=== PATIENT | female | born 1955 | race Caucasian/White ===

== ENCOUNTER 2017-06-15 15:47 | Emergency (ER) | payer OTHER ==
[~2017-06-15 15:47] MED LIST: GLUC10TA3 PO; GLUCTAB PO; LANTUSP SQ; LISI10TA PO; NOVOLOGP2 SQ; SYNT300T PO; VERA120T3 OR
[2017-06-15 15:55] VITALS: BP 130/86; PULSE 113; RESP 18; TEMP 98.5; O2SAT 98
[2017-06-15 16:45] LABS: AUTOMATED NEUTROPHIL # 4.4 TH/MM3 (1.8-7.7); BASOPHIL # 0.1 TH/MM3 (0-0.2); EOSINOPHIL # 0.1 TH/MM3 (0-0.4); EOSINOPHIL % 2.2 % (0.0-4.0); HEMATOCRIT 38.7 % (35.0-46.0); HEMOGLOBIN 13.2 GM/DL (11.6-15.3); LYMPH % 17.7 % (9.0-44.0); LYMPHOCYTE # 1.1 TH/MM3 (1.0-4.8); MEAN CELL VOLUME 85.3 FL (80.0-100.0); MEAN CORPUSCULAR HEMOGLOBIN 29.1 PG (27.0-34.0); MEAN CORPUSCULAR HGB CONC 34.1 % (32.0-36.0); MEAN PLATELET VOLUME 7.3 FL (7.0-11.0); MONO % 6.7 % (0.0-8.0); MONOCYTE # 0.4 TH/MM3 (0-0.9); NEUT % 72.4 % (16.0-70.0); PLATELET COUNT 221 TH/MM3 (150-450); RED BLOOD COUNT 4.54 MIL/MM3 (4.00-5.30); RED CELL DISTRIBUTION WIDTH 16.4 % (11.6-17.2)
[2017-06-15 16:49] LABS: BACTERIA, URINE OCC /hpf; BILIRUBIN, URINE NEG (NEG); BLOOD, URINE NEG (NEG); GLUCOSE,URINE 1000 mg/dL (NEG); KETONE, URINE TRACE mg/dL (NEG); MUCUS URINE FEW /lpf (OCC); NITRITE,URINE NEG (NEG); SQUAMOUS EPITHELIAL CELL URINE 1 /hpf (0-5); URINE COLOR YELLOW (YELLW/STRAW); URINE LEUKOCYTE ESTERASE TRACE (NEG)
[2017-06-15 16:57] LABS: BICARBONATE 31.6 MEQ/L (21.0-32.0); CALCIUM 9.7 MG/DL (8.5-10.1); CREATININE 0.76 MG/DL (0.50-1.00)
[2017-06-15] MEDS ORDERED: MORPHINE SULFATE 2 MG/ML INJ IV PUSH ONE (17:00)
--- NOTE | 2017-06-15 17:04 | PD ---
HPI Chief Complaint: Flank/Kidney Pain Time Seen by Provider: 16:53 Travel History International Travel<30 days: No Contact w/Intl Traveler<30days: No Traveled to known affect area: No History of Present Illness HPI 62-year-old female here for evaluation of left flank pain and left leg edema. The patient reports she was diagnosed with the EBV 2 weeks ago and was started on a month course of acyclovir by her primary care physician as well as a prednisone taper which has been finished. She reports that her initial symptom was left flank pain. This resolved with acyclovir, however returned last night. Pain is sharp/stabbing, severe, radiates to her left upper abdomen. Pain is worse with movements and palpation. She denies urinary symptoms such as hematuria or dysuria. Patient also reports left leg edema times one day. She was diagnosed with a DVT in her 20s when she was on control. No chest pain or dyspnea. PFSH Past Medical History Autoimmune Disease: Yes (LITCHEN PLATINUS) Heart Rhythm Problems: Yes Cancer: No Cardiac Catheterization: No Cardiovascular Problems: Yes (HTN) High Cholesterol: No Congestive Heart Failure: No Diabetes: Yes Diminished Hearing: No Endocrine: Yes (HYPOTHYRIODISM) Gastrointestinal Disorders: No Genitourinary: No Hepatitis: No Hiatal Hernia: No Hypertension: Yes Immune Disorder: Yes (LETCHONPLATONIS) Musculoskeletal: No Neurologic: No Psychiatric: No Reproductive: No Respiratory: Yes (SLEEP APNEA) Thyroid Disease: Yes (HYPOTHYROIDISM) Menopausal: Yes Dilation and Curettage (D&C): Yes Past Surgical History AICD: No Section: Yes Coronary Artery Bypass Graft: No Gynecologic Surgery: Yes (D&C, ABLATION) Joint Replacement: No Pacemaker: No Other Surgery: Yes Social History Alcohol Use: No Tobacco Use: No Substance Use: No Allergies-Medications (Allergen,Severity, Reaction): Coded Allergies: No Known Allergies (Verified Allergy, Unknown, 06/15/17) Reported Meds & Prescriptions Reported Meds & Active Scripts Active Hydrocodone-Acetaminophen 5-300 Mg Tab 1 Tab PO Q6H PRN Xarelto (Rivaroxaban) 20 Mg Tab 20 Mg PO DAILY 30 Days Xarelto (Rivaroxaban) 15 Mg Tab 15 Mg PO DAILY 21 Days Reported Metformin (Metformin HCl) 1,000 Mg Tab 1,000 Mg PO BID Glipizide 10 Mg Tab 20 Mg PO BID Take 30 minutes before a meal Lipitor (Atorvastatin Calcium) 10 Mg Tab 10 Mg PO HS Lantus Inj (Insulin Glargine) 1,000 Unit/10 Ml Vial 25 Units SQ DAILY IN THE PM Lantus Inj (Insulin Glargine) 1,000 Unit/10 Ml Vial 35 Units SQ DAILY IN THE AM Lisinopril-Hctz 20-25 Mg Tab 1 Tab PO BID Levothyroxine (Levothyroxine Sodium) 100 Mcg Tab 100 Mcg PO DAILY Tizanidine (Tizanidine HCl) 4 Mg Cap 4 Mg PO BID Review of Systems Except as stated in HPI: all other systems reviewed are Neg Physical Exam Narrative GENERAL: Well-developed, well-nourished, comfortable, no apparent distress. SKIN: Focused skin assessment warm/dry. No rash. HEAD: Atraumatic. Normocephalic. EYES: Pupils equal and round. No scleral icterus. No injection or drainage. ENT: Mucous membranes pink and moist. CARDIOVASCULAR: Regular rate and rhythm. Bilateral dorsalis pedis pulses are brisk and equal. RESPIRATORY: No accessory muscle use. Clear to auscultation. Breath sounds equal bilaterally. GASTROINTESTINAL: Abdomen soft, non-tender, nondistended. MUSCULOSKELETAL: No obvious deformities. No clubbing. No cyanosis. No edema. Moderate left flank and CVA tenderness. No right CVA tenderness. No midline vertebral step-off or tenderness. Moderate left lower extremity edema when compared to the right with left calf tenderness. All compartments in left lower extremity are supple. NEUROLOGICAL: Awake and alert. No obvious cranial nerve deficits. Motor grossly within normal limits. Normal speech. PSYCHIATRIC: Appropriate mood and affect; insight and judgment normal. Data Data Last Documented VS Vital Signs Date Time Temp Pulse Resp B/P (MAP) Pulse Ox O2 Delivery O2 Flow Rate FiO2 06/15/17 17:16 102 18 06/15/17 15:55 98.5 130/86 (101) 98 Orders Orders Complete Blood Count With Diff (06/15/17 15:57) Basic Metabolic Panel (Bmp) (06/15/17 15:57) Urinalysis - C+S If Indicated (06/15/17 15:57) Hepatic Functional Panel (06/15/17 16:59) ^ Insert Iv (06/15/17 16:59) Ct Abd/Pel W Iv Contrast(Rout) (06/15/17 ) Morphine Inj (Morphine Inj) (06/15/17 17:00) Us Leg Venous Doppler (06/15/17 ) Iohexol 350 Inj (Omnipaque 350 Inj) (06/15/17 19:13) Rivaroxaban (Xarelto) (06/15/17 20:30) Ed Discharge Order (06/15/17 20:26) Labs Laboratory Tests Test 06/15/17 16:30 White Blood Count 6.0 TH/MM3 Red Blood Count 4.54 MIL/MM3 Hemoglobin 13.2 GM/DL Hematocrit 38.7 % Mean Corpuscular Volume 85.3 FL Mean Corpuscular Hemoglobin 29.1 PG Mean Corpuscular Hemoglobin Concent 34.1 % Red Cell Distribution Width 16.4 % Platelet Count 221 TH/MM3 Mean Platelet Volume 7.3 FL Neutrophils (%) (Auto) 72.4 % Lymphocytes (%) (Auto) 17.7 % Monocytes (%) (Auto) 6.7 % Eosinophils (%) (Auto) 2.2 % Basophils (%) (Auto) 1.0 % Neutrophils # (Auto) 4.4 TH/MM3 Lymphocytes # (Auto) 1.1 TH/MM3 Monocytes # (Auto) 0.4 TH/MM3 Eosinophils # (Auto) 0.1 TH/MM3 Basophils # (Auto) 0.1 TH/MM3 CBC Comment DIFF FINAL Differential Comment Urine Color YELLOW Urine Turbidity CLEAR Urine pH 5.0 Urine Specific [place] 1.021 Urine Protein NEG mg/dL Urine Glucose (UA) 1000 mg/dL Urine Ketones TRACE mg/dL Urine Occult Blood NEG Urine Nitrite NEG Urine Bilirubin NEG Urine Urobilinogen LESS THAN 2.0 MG/DL Urine Leukocyte Esterase TRACE Urine RBC LESS THAN 1 /hpf Urine WBC 1 /hpf Urine Squamous Epithelial Cells 1 /hpf Urine Bacteria OCC /hpf Urine Mucus FEW /lpf Microscopic Urinalysis Comment CULT NOT INDICATED Blood Urea Nitrogen 25 MG/DL Creatinine 0.76 MG/DL Random Glucose 246 MG/DL Calcium Level 9.7 MG/DL Sodium Level 135 MEQ/L Potassium Level 3.3 MEQ/L Chloride Level 96 MEQ/L Carbon Dioxide Level 31.6 MEQ/L Anion Gap 7 MEQ/L Estimat Glomerular Filtration Rate 78 ML/MIN Total Bilirubin 0.2 MG/DL Direct Bilirubin 0.1 MG/DL Indirect Bilirubin 0.1 MG/DL Aspartate Amino Transf (AST/SGOT) 17 U/L Alanine Aminotransferase (ALT/SGPT) 33 U/L Alkaline Phosphatase 76 U/L Total Protein 7.3 GM/DL Albumin 3.6 GM/DL [facility] Medical Decision Making Medical Screen Exam Complete: Yes Emergency Medical Condition: Yes Differential Diagnosis Splenomegaly, pyelonephritis, nephrolithiasis, ureterolithiasis, colitis, diverticulitis, DVT Narrative Course Vital signs reviewed. CBC is unremarkable. CMP is remarkable for potassium 3.3, random glucose 246, otherwise unremarkable. UA shows 1000 glucose, trace ketones, trace leukocyte esterase, negative nitrites, not suggestive of UTI. Left lower extremity venous duplex: CONCLUSION: Left calf DVT CT abdomen pelvis: CONCLUSION: 1. No acute findings. Atherosclerotic aorta without aneurysm. Mild fatty liver. Patient was made aware of all findings. She is resting comfortably. There are no signs of phlegmasia cerulea dolens. Bilateral dorsalis pedis pulses are brisk and equal. All compartments in bilateral lower extremities are supple. Plan is to start her on Xarelto. The risks, benefits, and alternatives were discussed with the patient regarding this medication. She has an appointment with her primary care physician Dr. Mazariegos tomorrow. She is stable for discharge home with outpatient follow-up. She was advised on when to return to the emergency department. She verbalizes understanding and agreement with plan. Diagnosis Primary Impression: Left leg DVT Qualified Codes: I82.442 - Acute embolism and thrombosis of left tibial vein Additional Impression: Left flank pain Referrals: Ravi Mazariegos MD 1 day Additional Instructions: Follow-up with your primary care physician tomorrow as scheduled. Return to the emergency department for worsening symptoms or any other concerns. Scripts Rivaroxaban (Xarelto) 15 Mg Tab 15 MG PO Q12HR for Blood Clot Prevention for 21 Days, TAB 0 Refills Prov: Sandro De Leon MD 06/15/17 Hydrocodone-Acetaminophen (Hydrocodone-Acetaminophen) 5-300 Mg Tab 1 TAB PO Q6H Y for PAIN, #12 TAB 0 Refills Prov: Sandro De Leon MD 06/15/17 Rivaroxaban (Xarelto) 20 Mg Tab 20 MG PO DAILY for Blood Clot Prevention for 30 Days, #30 TAB 0 Refills Prov: Sandro De Leon MD 06/15/17 Rivaroxaban (Xarelto) 15 Mg Tab 15 MG PO DAILY for Blood Clot Prevention for 21 Days, #21 TAB 0 Refills Prov: Sandro De Leon MD 06/15/17 Disposition: 01 DISCHARGE HOME Condition: Stable Sandro De Leon MD Jun 15, 2017 17:04
[2017-06-15 17:17] LABS: ALBUMIN 3.6 GM/DL (3.4-5.0); DIRECT BILIRUBIN ADULT 0.1 MG/DL (0.0-0.2)
[2017-06-15 17:18] LABS: INDIRECT BILIRUBIN 0.1 MG/DL (0.0-0.8); TOTAL BILIRUBIN ADULT 0.2 MG/DL (0.2-1.0); TOTAL PROTEIN 7.3 GM/DL (6.4-8.2)
[2017-06-15] MEDS ORDERED: GLIP10TA6 PO (17:33)
[2017-06-15] MEDS ORDERED: METF1000 PO (17:33)
[2017-06-15] MEDS ORDERED: LEVO100T5 PO (17:33)
[2017-06-15] MEDS ORDERED: TIZA4CAP3 PO (17:33)
[2017-06-15] MEDS ORDERED: LIPI10TA PO (17:33)
[2017-06-15] MEDS ORDERED: LANTUS2P SQ ×2 (17:33)
[2017-06-15] MEDS ORDERED: LISI20TA3 PO (17:33)
--- NOTE | 2017-06-15 17:52 | RADRPT ---
EXAM DATE/TIME: 06/15/2017 17:30 [facility] COMPARISON: No previous studies available for comparison. INDICATIONS : Left leg swelling. MEDICAL HISTORY : Hypothyroidism. Hypertension. Syncope. Sleep apnea. Diabetes. Claustrophobia. SURGICAL HISTORY : section. Uterine ablation. Dilation and curettage. ENCOUNTER: Initial ACUITY: 1 week PAIN SCORE: 6/10 LOCATION: Left leg. TECHNIQUE: Venous ultrasound of the leg was performed from the inguinal ligament to the proximal calf. Real-karen e, color Doppler and spectral tracing, compression and augmentation techniques were used. FINDINGS: There is occlusive thrombus present in the left calf within the peroneal and posterior tibial veins. The more proximal deep venous structures are patent. Specifically, the common femoral vein, superfici al femoral vein and popliteal vein are patent and normal in appearance. Visualized iliac vein is lin nt. CONCLUSION: Left calf DVT Pro Feng MD on June 15, 2017 at 17:49 Board Certified Radiologist. This report was verified electronically.
[2017-06-15] MEDS ORDERED: IOHEXOL 350 MG/ML 10 ML VIAL (for RAD DIAG) IVCONTRAST ONE (19:13)
--- NOTE | 2017-06-15 19:42 | RADRPT ---
EXAM DATE/TIME: 06/15/2017 19:00 [facility] COMPARISON: No previous studies available for comparison. INDICATIONS : Abdomen pain. IV CONTRAST: 100 cc Omnipaque 350 (iohexol) IV ORAL CONTRAST: No oral contrast ingested. RADIATION DOSE: 19.49 CTDIvol (mGy) MEDICAL HISTORY : None SURGICAL HISTORY : None. ENCOUNTER: Initial ACUITY: 1 day PAIN SCALE: 5/10 LOCATION: Left flank TECHNIQUE: Volumetric scanning of the abdomen and pelvis was performed. Using automated exposure control and ad justment of the mA and/or kV according to patient size, radiation dose was kept as low as reasonably achievable to obtain optimal diagnostic quality images. DICOM format image data is available electro nically for review and comparison. FINDINGS: LOWER LUNGS: The visualized lower lungs are clear. LIVER: Homogeneous density without lesion. There is no dilation of the biliary tree. No calcified gallston es. SPLEEN: Normal size without lesion. PANCREAS: Within normal limits. KIDNEYS: Normal in size and shape. There is no mass, stone or hydronephrosis. ADRENAL GLANDS: Within normal limits. VASCULAR: There is no aortic aneurysm. BOWEL/MESENTERY: The stomach, small bowel, and colon demonstrate no acute abnormality. There is no free intraperitone al air or fluid. ABDOMINAL WALL: Within normal limits. RETROPERITONEUM: There is no lymphadenopathy. BLADDER: No wall thickening or mass. REPRODUCTIVE: Within normal limits. INGUINAL: There is no lymphadenopathy or hernia. MUSCULOSKELETAL: Within normal limits for patient age. CONCLUSION: 1. No acute findings. Atherosclerotic aorta without aneurysm. Mild fatty liver. Jomar Carlton MD on June 15, 2017 at 19:39 Board Certified Radiologist. This report was verified electronically.
[2017-06-15] MEDS ORDERED: XARE20TA PO (20:25)
[2017-06-15] MEDS ORDERED: HYDR-4107 PO (20:25)
[2017-06-15] MEDS ORDERED: XARE15TA PO ×2 (20:25→20:28)
[2017-06-15] MEDS ORDERED: RIVAROXABAN 15 MG TAB PO ONE (20:30)
== END 2017-06-15 21:17 | disposition home or self-care (01) ==
LOC: NEPD 15:47
DX: I82.442 Acute embolism and thrombosis of left tibial vein (principal); R10.9 Unspecified abdominal pain; E03.9 Hypothyroidism, unspecified; E11.9 Type 2 diabetes mellitus without complications; I10 Essential (primary) hypertension; Z79.01 Long term (current) use of anticoagulants; Z79.4 Long term (current) use of insulin
CPT/HCPCS: 74177; 80048; 80076; 81001; 85025; 93971; 96374; 99285; J2270; Q9967

== ENCOUNTER 2017-06-19 07:32 | Emergency (ER) | payer OTHER ==
[~2017-06-19] VITALS: Ht 167.6 cm; Wt 100.0 kg
[~2017-06-19 07:32] MED LIST changes: +GLIP10TA6 PO; -GLUC10TA3 PO; -GLUCTAB PO; +HYDR-4107 PO; +LANTUS2P SQ; -LANTUSP SQ; +LEVO100T5 PO; +LIPI10TA PO; -LISI10TA PO; +LISI20TA3 PO; +METF1000 PO; -NOVOLOGP2 SQ; -SYNT300T PO; +TIZA4CAP3 PO; -VERA120T3 OR; +XARE15TA PO; +XARE20TA PO
[2017-06-19] MEDS ORDERED: GADODIAMIDE PF 287 MG/ML 20 ML VIAL (for RAD MRI) IVCONTRAST ONE (07:33)
[2017-06-19 07:37] VITALS: BP 139/83; PULSE 85; RESP 20; TEMP 98.3; O2SAT 95
--- NOTE | 2017-06-19 07:48 | PD ---
HPI Chief Complaint: Numbness/Tingling Time Seen by Provider: 07:47 Travel History International Travel<30 days: No Contact w/Intl Traveler<30days: No Traveled to known affect area: No History of Present Illness HPI 62-year-old female came to the emergency room with history of left fingers tingling and numbness. She is also complaining of occasional left arm pain that comes and goes. Patient says that she was in the emergency room last Thursday when she was diagnosed with DVT and was discharged home on Xarelto. Patient has been taking the Xarelto like she supposed to. She was asked to return back to the ER if anything feels different. Patient says since this morning the numbness sensation did feel different and hence she came to the emergency room. She does have a primary care physician. Patient denies of any chest pain or shortness of breath. The pain is non-radiating and comes and goes. Patient has never had these kind of symptoms in the past. She is a diabetic and says that her sugar has been well controlled lately. No history of strokes in the past. Her younger sister last year had stroke. [facility] Past Medical History Narrative Medical List of her past medical, surgical, social and family history is reviewed from the nursing note. Hx Anticoagulant Therapy: Yes (XARELTO) Autoimmune Disease: Yes (LITCHEN PLATINUS) Heart Rhythm Problems: Yes Cancer: No Cardiac Catheterization: No Cardiovascular Problems: Yes (HTN) High Cholesterol: No Congestive Heart Failure: No Diabetes: Yes Diminished Hearing: No Endocrine: Yes (HYPOTHYRIODISM) Gastrointestinal Disorders: No Genitourinary: No Hepatitis: No Hiatal Hernia: No Hypertension: Yes Immune Disorder: Yes (LETCHONPLATONIS) Musculoskeletal: No Neurologic: No Psychiatric: No Reproductive: No Respiratory: Yes (SLEEP APNEA) Sleep Apnea: Yes Thyroid Disease: Yes (HYPOTHYROIDISM) Menopausal: Yes Dilation and Curettage (D&C): Yes Past Surgical History AICD: No Section: Yes Coronary Artery Bypass Graft: No Gynecologic Surgery: Yes (D&C, ABLATION) Joint Replacement: No Pacemaker: No Other Surgery: Yes Social History Alcohol Use: Yes (RARE ) Tobacco Use: No Substance Use: No Allergies-Medications (Allergen,Severity, Reaction): Coded Allergies: No Known Allergies (Verified Allergy, Unknown, 06/19/17) Comments No known drug allergies. Reported Meds & Prescriptions Reported Meds & Active Scripts Active Xarelto (Rivaroxaban) 15 Mg Tab 15 Mg PO Q12HR 21 Days Hydrocodone-Acetaminophen 5-300 Mg Tab 1 Tab PO Q6H PRN Reported Metformin (Metformin HCl) 1,000 Mg Tab 1,000 Mg PO BID Glipizide 10 Mg Tab 20 Mg PO BID Take 30 minutes before a meal Lipitor (Atorvastatin Calcium) 10 Mg Tab 10 Mg PO HS Lantus Inj (Insulin Glargine) 1,000 Unit/10 Ml Vial 25 Units SQ DAILY IN THE PM Lantus Inj (Insulin Glargine) 1,000 Unit/10 Ml Vial 35 Units SQ DAILY IN THE AM Lisinopril-Hctz 20-25 Mg Tab 1 Tab PO BID Levothyroxine (Levothyroxine Sodium) 100 Mcg Tab 100 Mcg PO DAILY Tizanidine (Tizanidine HCl) 4 Mg Cap 4 Mg PO BID Narrative Medication The services home medications reviewed from the nursing note. Review of Systems Except as stated in HPI: all other systems reviewed are Neg Neurologic: Positive: Paresthesia Physical Exam Narrative GENERAL: Awake, alert, anxious, no obvious distress SKIN: Focused skin assessment warm/dry. HEAD: Atraumatic. Normocephalic. EYES: Pupils equal and round. No scleral icterus. No injection or drainage. ENT: No nasal bleeding or discharge. Mucous membranes pink and moist. NECK: Trachea midline. No JVD. CARDIOVASCULAR: Regular rate and rhythm. No murmur appreciated. RESPIRATORY: No accessory muscle use. Clear to auscultation. Breath sounds equal bilaterally. GASTROINTESTINAL: Abdomen soft, non-tender, nondistended. Hepatic and splenic margins not palpable. MUSCULOSKELETAL: No obvious deformities. No clubbing. No cyanosis. No edema. NEUROLOGICAL: Awake and alert. No obvious cranial nerve deficits. Motor grossly within normal limits. Normal speech. PSYCHIATRIC: Appropriate mood and affect; insight and judgment normal. Data Data Last Documented VS Vital Signs Date Time Temp Pulse Resp B/P (MAP) Pulse Ox O2 Delivery O2 Flow Rate FiO2 06/19/17 11:20 97.9 76 16 132/77 (95) 99 06/19/17 10:42 Room Air Orders Orders Electrocardiogram (06/19/17 07:51) Prothrombin Time / Inr (Pt) (06/19/17 07:51) Complete Blood Count With Diff (3/2/18 07:51) Basic Metabolic Panel (Bmp) (06/19/17 07:51) Troponin I (06/19/17 07:51) Ct Brain W/O Iv Contrast(Rout) (06/19/17 07:51) Chest, Single Ap (06/19/17 07:51) Ecg Monitoring (06/19/17 07:51) Iv Access Insert/Monitor (06/19/17 07:51) Oximetry (06/19/17 07:51) Sodium Chloride 0.9% Flush (Ns Flush) (06/19/17 08:00) Mri Brain W&W/O Contrast (06/19/17 ) Mra Brain W/O Contrast (Cow) (06/19/17 ) Mra Carotids W Contrast (06/19/17 ) Gadodiamide Pf Inj (Omniscan Pf Inj) (06/19/17 07:33) Ed Discharge Order (06/19/17 10:58) Labs Laboratory Tests Test 06/19/17 08:10 White Blood Count 4.1 TH/MM3 Red Blood Count 4.28 MIL/MM3 Hemoglobin 12.3 GM/DL Hematocrit 36.6 % Mean Corpuscular Volume 85.4 FL Mean Corpuscular Hemoglobin 28.8 PG Mean Corpuscular Hemoglobin Concent 33.7 % Red Cell Distribution Width 16.7 % Platelet Count 226 TH/MM3 Mean Platelet Volume 7.2 FL Neutrophils (%) (Auto) 64.6 % Lymphocytes (%) (Auto) 19.8 % Monocytes (%) (Auto) 10.4 % Eosinophils (%) (Auto) 3.8 % Basophils (%) (Auto) 1.4 % Neutrophils # (Auto) 2.6 TH/MM3 Lymphocytes # (Auto) 0.8 TH/MM3 Monocytes # (Auto) 0.4 TH/MM3 Eosinophils # (Auto) 0.2 TH/MM3 Basophils # (Auto) 0.1 TH/MM3 CBC Comment DIFF FINAL Differential Comment Prothrombin Time 12.7 SEC Prothromb Time International Ratio 1.3 RATIO Blood Urea Nitrogen 15 MG/DL Creatinine 0.57 MG/DL Random Glucose 220 MG/DL Calcium Level 9.5 MG/DL Sodium Level 135 MEQ/L Potassium Level 3.8 MEQ/L Chloride Level 96 MEQ/L Carbon Dioxide Level 28.3 MEQ/L Anion Gap 11 MEQ/L Estimat Glomerular Filtration Rate 108 ML/MIN Troponin I LESS THAN 0.02 NG/ML MDM Medical Decision Making Medical Screen Exam Complete: Yes Emergency Medical Condition: Yes Medical Record Reviewed: Yes Interpretation(s) Twelve-lead EKG was reviewed by me. Normal sinus rhythm, left axis deviation, poor R-wave progression, questionable old anterior septal [place], nonspecific ST-T wave changes. Heart rate of 79 bpm. Differential Diagnosis CVA, TIA, peripheral neuropathy Narrative Course 11:13 AM blood test results of back and within acceptable limits. Initial CT scan of the head was negative. At ordered an MRI of the brain, MRA of the brain and MRA of the neck. All those have been reported as unremarkable. I'm comfortable discharging her home. She needs to follow up with her primary care. Procedures EKG Prior to Arrival: No Diagnosis Primary Impression: Paresthesia Additional Impression: Peripheral neuropathy Qualified Codes: G60.9 - Hereditary and idiopathic neuropathy, unspecified Referrals: Primary Care Physician Additional Instructions: Please return to the ER if condition worsens or any other new concerns. Otherwise follow-up with your primary care. Continue taking her medications like is supposed to. Med/Other Pt SpecificInfo: No Change to Meds Disposition: 01 DISCHARGE HOME Condition: Stable Miguel Mon MD Jun 19, 2017 07:48
[2017-06-19 08:00] VITALS: RESP 16; O2SAT 99
[2017-06-19] MEDS ORDERED: SODIUM CHLORIDE 0.9% FLUSH 10 ML FLUSH IVF PRN (08:00)
--- NOTE | 2017-06-19 08:07 | RADRPT ---
EXAM DATE/TIME: 06/19/2017 08:03 [facility] COMPARISON: CHEST SINGLE AP, October 09, 2015, 19:22. INDICATIONS : Left arm numbness and pain with cold fingers. MEDICAL HISTORY : Hypertension. Diabetes. SURGICAL HISTORY : None. ENCOUNTER: Initial ACUITY: 1 day PAIN SCORE: 2/10 LOCATION: Left arm. FINDINGS: Lung bases are hypoaerated. There is bibasilar atelectasis slightly worse on the right. The mid and u pper lung oliveros are clear. Heart and mediastinal structures are stable. CONCLUSION: Poor basilar aeration with mild bilateral atelectasis. No other evidence of acute process. Philip Patino MD on June 19, 2017 at 8:06 Board Certified Radiologist. This report was verified electronically.
--- NOTE | 2017-06-19 08:25 | RADRPT ---
EXAM DATE/TIME: 06/19/2017 08:03 [facility] COMPARISON: No previous studies available for comparison. INDICATIONS : Left arm numbness RADIATION DOSE: 56.35 CTDIvol (mGy) MEDICAL HISTORY : Hypertension. Diabetes SURGICAL HISTORY : None. ENCOUNTER: Initial ACUITY: 1 day PAIN SCALE: 4/10 LOCATION: Bilateral cranial TECHNIQUE: Multiple contiguous axial images were obtained of the head. Using automated exposure control and adj ustment of the mA and/or kV according to patient size, radiation dose was kept as low as reasonably a chievable to obtain optimal diagnostic quality images. DICOM format image data is available electro nically for review and comparison. FINDINGS: CEREBRUM: The ventricles are normal for age. No evidence of midline shift, mass lesion, hemorrhage or acute in farction. No extra-axial fluid collections are seen. POSTERIOR FOSSA: The cerebellum and brainstem are intact. The 4th ventricle is midline. The cerebellopontine angle i s unremarkable. EXTRACRANIAL: The visualized portion of the orbits is intact. SKULL: The calvaria is intact. No evidence of skull fracture. CONCLUSION: Unremarkable exam. No evidence of acute infarct, hemorrhage, mass or edema. Philip Patino MD on June 19, 2017 at 8:24 Board Certified Radiologist. This report was verified electronically.
[2017-06-19 08:28] VITALS: BP 115/69; PULSE 77; RESP 16; TEMP 97.8; O2SAT 99
[2017-06-19 08:38] LABS: AUTOMATED NEUTROPHIL # 2.6 TH/MM3 (1.8-7.7); BASOPHIL # 0.1 TH/MM3 (0-0.2); BASOPHIL % 1.4 % (0.0-2.0); EOSINOPHIL # 0.2 TH/MM3 (0-0.4); EOSINOPHIL % 3.8 % (0.0-4.0); HEMATOCRIT 36.6 % (35.0-46.0); HEMOGLOBIN 12.3 GM/DL (11.6-15.3); LYMPH % 19.8 % (9.0-44.0); LYMPHOCYTE # 0.8 TH/MM3 (1.0-4.8); MEAN CELL VOLUME 85.4 FL (80.0-100.0); MEAN CORPUSCULAR HEMOGLOBIN 28.8 PG (27.0-34.0); MEAN CORPUSCULAR HGB CONC 33.7 % (32.0-36.0); MEAN PLATELET VOLUME 7.2 FL (7.0-11.0); MONO % 10.4 % (0.0-8.0); MONOCYTE # 0.4 TH/MM3 (0-0.9); NEUT % 64.6 % (16.0-70.0); PLATELET COUNT 226 TH/MM3 (150-450); RED BLOOD COUNT 4.28 MIL/MM3 (4.00-5.30); RED CELL DISTRIBUTION WIDTH 16.7 % (11.6-17.2); WHITE BLOOD COUNT 4.1 TH/MM3 (4.0-11.0)
[2017-06-19 08:42] LABS: INTERNATIONAL NORMALIZED RATIO 1.3 RATIO; PROTHROMBIN TIME - PATIENT 12.7 SEC (9.8-11.6)
[2017-06-19 08:53] LABS: BICARBONATE 28.3 MEQ/L (21.0-32.0); BLOOD UREA NITROGEN 15 MG/DL (7-18); CALCIUM 9.5 MG/DL (8.5-10.1); CHLORIDE 96 MEQ/L (98-107); CREATININE 0.57 MG/DL (0.50-1.00); GLOMERULAR FILTRATION RATE 108 ML/MIN (>89); GLUCOSE,RANDOM 220 MG/DL (74-106); SODIUM (NA) 135 MEQ/L (136-145)
[2017-06-19 08:57] LABS: TROPONIN I LESS THAN 0.02 NG/ML (0.02-0.05)
--- NOTE | 2017-06-19 10:13 | RADRPT ---
EXAM DATE/TIME: 06/19/2017 09:46 [facility] COMPARISON: No previous studies available for comparison. INDICATIONS : Left upper extremity weakness. MEDICAL HISTORY : Hypertension. Diabetes mellitus type 2. SURGICAL HISTORY : section. ENCOUNTER: Initial ACUITY: 1 day PAIN SCORE: 0/10 LOCATION: cranial Please note a normal MRA of the brain does not entirely exclude the possibility of a small aneurysm, nor the possibility of distal intracranial vessel disease. TECHNIQUE: 3D time of flight MRA was performed. Source images, multiplanar STS MIP, and 3D volume MIP reconstru ctions were reviewed. FINDINGS: There is excellent visualization of the major intracranial arteries out to the second-order branch ve ssels. There is no evidence for aneurysm, vessel truncation or stenosis, and no evidence for vascula r malformation. CONCLUSION: Normal examination. Pro Feng MD on June 19, 2017 at 10:11 Board Certified Radiologist. This report was verified electronically.
[2017-06-19 10:42] VITALS: BP 118/60; PULSE 74; RESP 16; TEMP 98; O2SAT 99
--- NOTE | 2017-06-19 10:49 | RADRPT ---
EXAM DATE/TIME: 06/19/2017 09:46 [facility] COMPARISON: No previous studies available for comparison. INDICATIONS : Left upper extremity weakness. CONTRAST: 20 cc Omniscan (gadodiamide) IV MEDICAL HISTORY : Hypertension. Diabetes mellitus type 2. SURGICAL HISTORY : section. ENCOUNTER: Initial ACUITY: 1 day PAIN SCORE: 0/10 LOCATION: cranial TECHNIQUE: Multiplanar, multisequence MRI of the brain was performed both prior to and following the administrat ion of paramagnetic contrast. FINDINGS: CEREBRUM: Mild cervical volume loss. The ventricles are normal for age. No evidence of midline shift, mass les ion, hemorrhage or acute infarction. No extraaxial fluid collections are seen. The pituitary gland and suprasellar cistern are normal in configuration. WHITE MATTER: Minimal periventricular and deep white matter focal T2 prolongation. POSTERIOR FOSSA: The cerebellum and brainstem are intact. The 4th ventricle is midline. The cerebellopontine angle is unremarkable. The cerebellar tonsils are normal in position. DIFFUSION IMAGING: No focal areas of restricted diffusion are seen. No evidence of acute infarction. EXTRACRANIAL: The visualized portions of the orbits and paranasal sinuses are unremarkable. POST-CONTRAST: No abnormal areas of parenchymal or dural enhancement. No evidence of blood-brain barrier breakdown. CONCLUSION: 1. Senescent changes with minimal small vessel ischemic aeration a right matter demyelination. 2. No acute abnormality. No evidence for acute infarction, abnormal enhancement or mass. Ender Mcdonald MD on June 19, 2017 at 10:46 Board Certified Radiologist. This report was verified electronically.
--- NOTE | 2017-06-19 10:56 | RADRPT ---
EXAM DATE/TIME: 06/19/2017 09:46 [place] COMPARISON: No previous studies available for comparison. INDICATIONS : Left upper extremity weakness. CONTRAST: 20 cc Omniscan (gadodiamide) IV MEDICAL HISTORY : Diabetes mellitus type 2. Hypertension. SURGICAL HISTORY : section. ENCOUNTER: Initial ACUITY: 1 day PAIN SCORE: 0/10 LOCATION: neck Percent stenosis is calculated using the diameter of the stenotic region over the diameter of the nor mal distal internal carotid artery. TECHNIQUE: Bolus infused MRA of the extracranial circulation was performed using a neurovascular coil. Post pro cessing was performed including rotating subvolume maximum intensity projections of each carotid santo ry, rotating full volume maximum intensity projections of both carotid arteries, sagittal and coronal sliding thin slab reformations of each carotid artery, and left oblique sliding thin slab reformatio n through the aortic arch to include the origin of the arch branch vessels. FINDINGS: AORTIC ARCH: There is a three vessel origin of the great vessels from the aorta. No evidence of ostial narrowing. RIGHT CAROTID: The common carotid artery is intact. The carotid bulb has a normal configuration without ulceration or narrowing. The internal carotid artery lumen is smooth without stenosis. The external carotid ar percy is intact. LEFT CAROTID: The common carotid artery is intact. The carotid bulb has a normal configuration without ulceration or narrowing. The internal carotid artery lumen is smooth without stenosis. The external carotid ar percy is intact. VERTEBRALS: Origin of the left vertebral artery is suboptimally visualized. Left vertebral artery is dominant in comparison to the right vertebral artery. Vertebral arteries are otherwise patent. CONCLUSION: 1. No significant carotid flow-limiting stenosis. 2. Suboptimal visualization of the left vertebral artery origin. Left vertebral dominant. Otherwise, patent vertebral arteries. Ender Mcdonald MD on June 19, 2017 at 10:48 Board Certified Radiologist. This report was verified electronically.
[2017-06-19 11:20] VITALS: BP 132/77; TEMP 97.9
--- NOTE | 2017-06-19 18:04 | EKG ---
Date Performed: 06/19/2017 Time Performed: 08:17:53 PTAGE: 62 years EKG: Sinus rhythm LOW QRS VOLTAGE IN PRECORDIAL LEADS POSSIBLE ANTERIOR MYOCARDIAL INFARCTION ABNORMAL ECG PREVIOUS TRACING : 10/10/2015 01.32 Since the prior tracing, there has been no significant block DOCTOR: Nati Veliz Interpretating Date/Time 06/19/2017 18:00:53
== END 2017-06-19 11:20 | disposition home or self-care (01) ==
LOC: NEPC 07:32
DX: R20.2 Paresthesia of skin (principal); G60.9 Hereditary and idiopathic neuropathy, unspecified; I10 Essential (primary) hypertension; E11.9 Type 2 diabetes mellitus without complications; E03.9 Hypothyroidism, unspecified; R94.31 Abnormal electrocardiogram [ECG] [EKG]; Z86.718 Personal history of other venous thrombosis and embolism; Z79.84 Long term (current) use of oral hypoglycemic drugs; Z79.4 Long term (current) use of insulin; Z79.01 Long term (current) use of anticoagulants; Z79.899 Other long term (current) drug therapy
CPT/HCPCS: 70450; 70544; 70548; 70553; 71045; 80048; 84484; 85025; 85610; 93005; 99285; A9579

== ENCOUNTER 2017-09-29 09:06 | Emergency (ER) | payer OTHER ==
[~2017-09-29] VITALS: Ht 167.6 cm; Wt 95.0 kg
[~2017-09-29 09:06] MED LIST changes: -XARE20TA PO
[2017-09-29 09:12] VITALS: BP 159/70; PULSE 88; RESP 17; TEMP 98; O2SAT 95
--- NOTE | 2017-09-29 09:40 | PD ---
HPI Chief Complaint: Medical Clearance Time Seen by Provider: 09:18 Travel History International Travel<30 days: No Contact w/Intl Traveler<30days: No Traveled to known affect area: No History of Present Illness HPI The patient is a 62-year-old female who presents to the emergency department for headache and left lower extremity pain. The patient was diagnosed with a DVT in both lower extremities 1 month ago. The patient is followed by her oncologist/steaming machine operator, Dr. Live, who is located in [place], [place]. The patient was placed on Xarelto. The patient has been taking her medication as directed. Patient recently to [place], however, states she stopped frequently to get out and walk. The patient states she developed pain in the left lower extremity several days ago which is located in the back of the calf, similar to her previous pain from DVT. The patient states she underwent blood work which was unremarkable and also had a CT of the thorax and abdomen/pelvis which was negative. She was advised to follow-up outpatient for colonoscopy, however, has not had a colonoscopy performed as of yet. She does state she had a colonoscopy 3 years ago, a benign polyp was removed. She denies any known history of carcinoma. The headache is located over left aspect of her head, was not alleviated with [id number] Tylenol at home. She does have a history of previous intracranial hemorrhage with concussion 1 year ago. Symptoms are moderate. PFSH Past Medical History Hx Anticoagulant Therapy: Yes (XARELTO) Autoimmune Disease: Yes (LITCHEN PLATINUS) Heart Rhythm Problems: Yes Cancer: No Cardiac Catheterization: No Cardiovascular Problems: Yes (HTN) High Cholesterol: No Congestive Heart Failure: No Diabetes: Yes Diminished Hearing: No Endocrine: Yes (HYPOTHYRIODISM) Hepatitis: No Hiatal Hernia: No Hypertension: Yes Immune Disorder: Yes (LETCHONPLATONIS) Respiratory: Yes (SLEEP APNEA) Sleep Apnea: Yes Thyroid Disease: Yes (HYPOTHYROIDISM) Menopausal: Yes : 2 Para: 1 Dilation and Curettage (D&C): Yes Past Surgical History AICD: No Section: Yes (x 1) Coronary Artery Bypass Graft: No Gynecologic Surgery: Yes (D&C, ABLATION) Joint Replacement: No Pacemaker: No Other Surgery: Yes Social History Alcohol Use: Yes (RARE ) Tobacco Use: No Substance Use: No Allergies-Medications (Allergen,Severity, Reaction): Coded Allergies: No Known Allergies (Verified Allergy, Unknown, 06/19/17) Reported Meds & Prescriptions Reported Meds & Active Scripts Active Xarelto (Rivaroxaban) 15 Mg Tab 15 Mg PO Q12HR 21 Days Hydrocodone-Acetaminophen 5-300 Mg Tab 1 Tab PO Q6H PRN Reported Metformin (Metformin HCl) 1,000 Mg Tab 1,000 Mg PO BID Glipizide 10 Mg Tab 20 Mg PO BID Take 30 minutes before a meal Lipitor (Atorvastatin Calcium) 10 Mg Tab 10 Mg PO HS Lantus Inj (Insulin Glargine) 1,000 Unit/10 Ml Vial 25 Units SQ DAILY IN THE PM Lantus Inj (Insulin Glargine) 1,000 Unit/10 Ml Vial 35 Units SQ DAILY IN THE AM Lisinopril-Hctz 20-25 Mg Tab 1 Tab PO BID Levothyroxine (Levothyroxine Sodium) 100 Mcg Tab 100 Mcg PO DAILY Tizanidine (Tizanidine HCl) 4 Mg Cap 4 Mg PO BID Review of Systems Except as stated in HPI: all other systems reviewed are Neg General / Constitutional: No: Fever Eyes: No: Blurred Vision HENT: Positive: Headaches, No: Neck Pain Cardiovascular: No: Chest Pain or Discomfort Respiratory: No: Shortness of Breath Gastrointestinal: No: Nausea, Vomiting, Abdominal Pain Musculoskeletal: Positive: Edema, Pain Skin: Positive Other (Petechia to lower extremities bilaterally) Physical Exam Narrative GENERAL: Awake, alert, pleasant 8-year-old female who appears her stated age and is in no acute respiratory distress. SKIN: Focused skin assessment warm/dry. Petechiae noted to lower extremities bilaterally. HEAD: Atraumatic. Normocephalic. EYES: Pupils equal and round. 3 mm bilateral and reactive. EOMs are intact. ENT: No nasal bleeding or discharge. Mucous membranes pink and moist. NECK: Trachea midline. No JVD. CARDIOVASCULAR: Regular rate and rhythm. No murmur appreciated. RESPIRATORY: No accessory muscle use. Clear to auscultation. Breath sounds equal bilaterally. MUSCULOSKELETAL: No obvious deformities. No clubbing. No cyanosis. No obvious edema of the left lower extremity compared to the right. Mild tenderness of the posterior aspect of the left leg just inferior to the popliteal fossa. Positive dorsalis pedal pulses bilaterally. NEUROLOGICAL: Awake and alert. No obvious cranial nerve deficits. Motor grossly within normal limits. Normal speech. PSYCHIATRIC: Appropriate mood and affect; insight and judgment normal. Data Data Last Documented VS Vital Signs Date Time Temp Pulse Resp B/P (MAP) Pulse Ox O2 Delivery O2 Flow Rate FiO2 09/29/17 09:12 98.0 88 17 159/70 (99) 95 Orders Orders Complete Blood Count With Diff (09/29/17 09:33) Basic Metabolic Panel (Bmp) (09/29/17 09:33) Prothrombin Time / Inr (Pt) (09/29/17 09:33) Act Partial Throm Time (Ptt) (09/29/17 09:33) Ct Brain W/O Iv Contrast(Rout) (09/29/17 09:33) Ecg Monitoring (09/29/17 09:33) Iv Access Insert/Monitor (09/29/17 09:33) Oximetry (09/29/17 09:33) Sodium Chloride 0.9% Flush (Ns Flush) (09/29/17 09:45) Diphenhydramine Inj (Benadryl Inj) (09/29/17 09:45) Metoclopramide Inj (Reglan Inj) (09/29/17 09:45) Sodium Chlorid 0.9% 500 Ml Inj (Ns 500 M (09/29/17 09:45) Us Leg Venous Doppler (09/29/17 ) Labs Laboratory Tests Test 09/29/17 09:50 White Blood Count 4.1 TH/MM3 Red Blood Count 4.50 MIL/MM3 Hemoglobin 12.8 GM/DL Hematocrit 38.6 % Mean Corpuscular Volume 85.7 FL Mean Corpuscular Hemoglobin 28.5 PG Mean Corpuscular Hemoglobin Concent 33.3 % Red Cell Distribution Width 15.6 % Platelet Count 280 TH/MM3 Mean Platelet Volume 7.5 FL Neutrophils (%) (Auto) 70.2 % Lymphocytes (%) (Auto) 19.0 % Monocytes (%) (Auto) 7.3 % Eosinophils (%) (Auto) 2.5 % Basophils (%) (Auto) 1.0 % Neutrophils # (Auto) 2.9 TH/MM3 Lymphocytes # (Auto) 0.8 TH/MM3 Monocytes # (Auto) 0.3 TH/MM3 Eosinophils # (Auto) 0.1 TH/MM3 Basophils # (Auto) 0.0 TH/MM3 CBC Comment DIFF FINAL Differential Comment Prothrombin Time 10.2 SEC Prothromb Time International Ratio 1.0 RATIO Activated Partial Thromboplast Time 24.0 SEC Blood Urea Nitrogen 16 MG/DL Creatinine 0.68 MG/DL Random Glucose 171 MG/DL Calcium Level 9.9 MG/DL Sodium Level 138 MEQ/L Potassium Level 3.9 MEQ/L Chloride Level 101 MEQ/L Carbon Dioxide Level 28.1 MEQ/L Anion Gap 9 MEQ/L Estimat Glomerular Filtration Rate 88 ML/MIN [facility] Medical Decision Making Medical Screen Exam Complete: Yes Emergency Medical Condition: Yes Medical Record Reviewed: Yes Interpretation(s) Laboratory Tests Test 09/29/17 09:50 White Blood Count 4.1 TH/MM3 Red Blood Count 4.50 MIL/MM3 Hemoglobin 12.8 GM/DL Hematocrit 38.6 % Mean Corpuscular Volume 85.7 FL Mean Corpuscular Hemoglobin 28.5 PG Mean Corpuscular Hemoglobin Concent 33.3 % Red Cell Distribution Width 15.6 % Platelet Count 280 TH/MM3 Mean Platelet Volume 7.5 FL Neutrophils (%) (Auto) 70.2 % Lymphocytes (%) (Auto) 19.0 % Monocytes (%) (Auto) 7.3 % Eosinophils (%) (Auto) 2.5 % Basophils (%) (Auto) 1.0 % Neutrophils # (Auto) 2.9 TH/MM3 Lymphocytes # (Auto) 0.8 TH/MM3 Monocytes # (Auto) 0.3 TH/MM3 Eosinophils # (Auto) 0.1 TH/MM3 Basophils # (Auto) 0.0 TH/MM3 CBC Comment DIFF FINAL Differential Comment Prothrombin Time 10.2 SEC Prothromb Time International Ratio 1.0 RATIO Activated Partial Thromboplast Time 24.0 SEC Blood Urea Nitrogen 16 MG/DL Creatinine 0.68 MG/DL Random Glucose 171 MG/DL Calcium Level 9.9 MG/DL Sodium Level 138 MEQ/L Potassium Level 3.9 MEQ/L Chloride Level 101 MEQ/L Carbon Dioxide Level 28.1 MEQ/L Anion Gap 9 MEQ/L Estimat Glomerular Filtration Rate 88 ML/MIN Last Impressions Head CT 09/29/17 0933 Signed Impressions: CONCLUSION: 1. Negative CT Head non contrast. Lower Extremity Ultrasound 09/29/17 0000 Signed Impressions: CONCLUSION: 1. Nonocclusive thrombus in the left posterior tibial vein. 2. No evidence of DVT from the inguinal region to the knee. Differential Diagnosis Differential diagnosis includes acute DVT, chronic DVT, thrombophlebitis, Cordova' s cyst, intracranial hemorrhage, tension headache, migraine, medication side effect. Narrative Course IV was established, labs are drawn and sent, and the patient was placed on cardiac telemetry monitoring and continuous pulse oximetry monitoring. CT the brain was obtained. Ultrasound of the left lower extremity was ordered. The patient was administered Benadryl, Reglan, and IV fluids for her headache. CT the brain is negative. Ultrasound reveals a nonocclusive clot in the left posterior tibial vein, however, no clot seen within the thigh up to the inguinal region. The patient is already on Xarelto. The patient is advised to follow-up with her steaming machine operator. The patient's vitals are unremarkable, there is no tachycardia or or hypoxia, doubt pulmonary embolism. I am uncertain if the patient's clot seen in the left posterior tibial vein as the clot that was diagnosed 4 months ago and is subacute versus acute. The patient was on Xarelto 20 mg a day, however, they decreased to 10 mg a day I will treat as if the new DVT and started 50 mg twice a day and let her steaming machine operator decide the dose after 3 weeks. The patient is comfortable with this plan of care and disposition. The patient still had a mild headache, the CT was negative for intracranial hemorrhage, therefore, the patient was administered Toradol intravenously. Diagnosis Primary Impression: DVT (deep venous thrombosis) Qualified Codes: I82.442 - Acute embolism and thrombosis of left tibial vein Additional Impression: Cephalgia Qualified Codes: G44.209 - Tension-type headache, unspecified, not intractable Patient Instructions: General Instructions Additional Instructions: Xarelto 50 mg twice a day for 3 weeks and then follow-up with her steaming machine operator for further dosing. Stop the 10 mg Xarelto daily. Please provide the patient a copy of her CT results and ultrasound results at discharge. Med/Other Pt SpecificInfo: Prescription(s) given, Med Stopped (Stop Xarelto 10 mg daily) Scripts Rivaroxaban Starter Pack 15 & 20 mg (Xarelto Starter Pack 15 & 20 mg) 15 Mg (42) - 20 Mg (9) Tab 1 TAB PO DIRECTED for Blood Clot Prevention, #1 PACK 0 Refills Prov: Preston Zhou MD 09/29/17 Disposition: 01 DISCHARGE HOME Condition: Stable Preston Zhou MD Sep 29, 2017 09:40
[2017-09-29] MEDS ORDERED: diphenhydrAMINE HCL 50 MG/ML VIAL IVP ONE (09:45)
[2017-09-29] MEDS ORDERED: SODIUM CHLORIDE 0.9% FLUSH 10 ML FLUSH IVF PRN (09:45)
[2017-09-29] MEDS ORDERED: SODIUM CHLORID 0.9% 500 ML INJ 500 ML IV ONE (09:45)
[2017-09-29] MEDS ORDERED: METOCLOPRAMIDE HCL 10 MG/2 ML VIAL IVP ONE (09:45)
[2017-09-29 10:19] LABS: AUTOMATED NEUTROPHIL # 2.9 TH/MM3 (1.8-7.7); EOSINOPHIL # 0.1 TH/MM3 (0-0.4); EOSINOPHIL % 2.5 % (0.0-4.0); HEMATOCRIT 38.6 % (35.0-46.0); HEMOGLOBIN 12.8 GM/DL (11.6-15.3); LYMPHOCYTE # 0.8 TH/MM3 (1.0-4.8); MEAN CELL VOLUME 85.7 FL (80.0-100.0); MEAN CORPUSCULAR HEMOGLOBIN 28.5 PG (27.0-34.0); MEAN CORPUSCULAR HGB CONC 33.3 % (32.0-36.0); MEAN PLATELET VOLUME 7.5 FL (7.0-11.0); MONO % 7.3 % (0.0-8.0); MONOCYTE # 0.3 TH/MM3 (0-0.9); NEUT % 70.2 % (16.0-70.0); PLATELET COUNT 280 TH/MM3 (150-450); RED CELL DISTRIBUTION WIDTH 15.6 % (11.6-17.2); WHITE BLOOD COUNT 4.1 TH/MM3 (4.0-11.0)
[2017-09-29 10:25] LABS: PROTHROMBIN TIME - PATIENT 10.2 SEC (9.8-11.6)
[2017-09-29 10:35] LABS: BICARBONATE 28.1 MEQ/L (21.0-32.0); CALCIUM 9.9 MG/DL (8.5-10.1); CREATININE 0.68 MG/DL (0.50-1.00)
--- NOTE | 2017-09-29 11:04 | RADRPT ---
EXAM DATE: 09/29/2017 11:00 AM EDT AGE/SEX: 62 years / Female INDICATIONS: Cephalgia. CLINICAL DATA: This is the patient's initial encounter. Patient reports that signs and symptoms have been present for 1 day and indicates a pain score of 5/10. MEDICAL/SURGICAL HISTORY: Hypertension. Diabetes. Deep venous thrombosis. None. RADIATION DOSE: 35.06 CTDI (mGy) [place] [facility] [place]. . TECHNIQUE: CT of the head without contrast. Using automated exposure control and adjustment of the mA and/or kV according to patient size, radiation dose was kept as low as reasonably achievable to ob tain optimal diagnostic quality images. FINDINGS: Cerebrum: The ventricles are normal for age. No evidence of midline shift, mass lesion, hemorrhage or acute infarction. No extraaxial fluid collections are seen. Posterior Fossa: The cerebellum and brainstem are intact. The 4th ventricle is midline. The cerebe llopontine angle is unremarkable. Extracranial: The visualized portion of the orbits is intact. Skull: The calvaria is intact. No evidence of skull fracture. CONCLUSION: 1. Negative CT Head non contrast. Electronically signed by: Denilson Meade MD 09/29/2017 11:03 AM EDT
--- NOTE | 2017-09-29 11:19 | RADRPT ---
EXAM DATE: 09/29/2017 11:12 AM EDT AGE/SEX: 62 years / Female INDICATIONS: Left calf pain and swelling. CLINICAL DATA: This is the patient's initial encounter. Patient reports that signs and symptoms have been present for 1 day and indicates a pain score of 3/10. MEDICAL/SURGICAL HISTORY: Hypothyroidism. Diabetes. Hypertension. Anticoagulant therapy. Sle ep apnea. Litchen plantinus. Bilateral DVT history. section. Right knee meniscal repair. Di lation and curettage. Documentation Nurse ablation. COMPARISON: [facility] – [place], [place] LEG LEFT VENOUS DOPPLER, 06/15/2017. . TECHNIQUE: Venous ultrasound of both lower extremities was performed from the inguinal ligament to t he proximal calf. Real-time, color Doppler and spectral tracing, compression and augmentation techni ques were used. FINDINGS: There is normal compressibility of the deep venous system from the inguinal region to the knee. No ec hogenic clot is seen in the lumen of the common femoral, femoral, or popliteal veins. Nonocclusive th rombus is identified in the left posterior tibial vein. There is a normal response of the venous sys tem to proximal and distal augmentation and respiration. CONCLUSION: 1. Nonocclusive thrombus in the left posterior tibial vein. 2. No evidence of DVT from the inguinal region to the knee. Electronically signed by: Philip Patino MD 09/29/2017 11:18 AM EDT
[2017-09-29] MEDS ORDERED: RIVA1TAB PO (11:40)
[2017-09-29] MEDS ORDERED: KETOROLAC TROMETHAMINE 30 MG/ML (IVP) VIAL IV PUSH ONE (11:45)
[2017-09-29 12:02] VITALS: BP 148/75
== END 2017-09-29 12:07 | disposition home or self-care (01) ==
LOC: NEPC 09:06
DX: I82.442 Acute embolism and thrombosis of left tibial vein (principal); G44.209 Tension-type headache, unspecified, not intractable; E03.9 Hypothyroidism, unspecified; E11.9 Type 2 diabetes mellitus without complications; Z79.01 Long term (current) use of anticoagulants; Z79.4 Long term (current) use of insulin
CPT/HCPCS: 70450; 80048; 85025; 85610; 85730; 93971; 96361; 96374; 96375; 99285; J1200; J2765; J7040